=== PATIENT | male | born 1925 | race African-American/Black ===

== ENCOUNTER → 2017-04-20 | Day surgery (SDC) | payer MEDICARE, BC ==
[~2017-04-20] MED LIST: ALPR0.5T PO; ASPI-1159 PO; HYDR-4001 PO; NAPR220T66 PO; PREG50CA PO; ROSU20TA PO; TADA5TAB PO
[2017-04-20 10:25] LABS: CHLORIDE 106 mEq/L (98-107)
== END | disposition home or self-care (01) ==
LOC: CCL 09:34
PROVIDERS: ATTEND Specialist
DX: I71.4 Abdominal aortic aneurysm, without rupture (principal); Z53.8 Procedure and treatment not carried out for other reasons; I25.10 Atherosclerotic heart disease of native coronary artery without angina pectoris; E78.4 Other hyperlipidemia; I11.9 Hypertensive heart disease without heart failure; I73.9 Peripheral vascular disease, unspecified; Z79.82 Long term (current) use of aspirin; Z79.899 Other long term (current) drug therapy
CPT/HCPCS: 36415; 80048